=== PATIENT | male | born 1950 | race Hispanic/Latino ===

== ENCOUNTER → 2025-06-08 | Day surgery (SDC) | payer MEDICARE ==
[2025-06-02 11:29] LABS: BASOPHILS % 0.3 % (0.0-1.0); EOSINOPHILS % 0.8 % (0.0-6.0); LYMPHOCYTES % 19.2 % (18.0-39.1); MONOCYTES % 7.2 % (4.4-11.3); NEUTROPHILS % 72.4 % (38.7-80.0); RED CELL DISTRIBUTION WIDTH 16.0 % (11.7-14.4)
[~2025-06-08] MED LIST: ATORVASTATIN CA20 MG PO; CHLORTHALIDONE25 MG; FEROSUL325 MG PO; LIDOCAINE HCL 2% LOCAL INJ 5 ML SDV VIAL INJ ONE; LOSARTAN POTAS100 MG PO; METFORMIN HCL500 MG PO; NOVOLIN 70100 UNIT/3; PHENYLEPHRINE HCL 1% 10 MG/ML VIAL ONE; PROPOFOL IV EMULSION 10 MG/ML 20 ML VIAL ONE; VITAMIN C500 MG PO
[2025-06-08] MEDS: LACTATED RINGER'S 1,000 ML ONE (07:19)
[2025-06-08 10:07] VITALS: TEMP 97.2
[2025-06-08 10:35] VITALS: BP 127/70; PULSE 69; RESP 16; O2SAT 100
== END | disposition home or self-care (01) ==
LOC: OR 06:48
PROVIDERS: ATTEND Internal Medicine Gastroenterology
DX: Z12.11 Encounter for screening for malignant neoplasm of colon (principal); D12.2 Benign neoplasm of ascending colon; K31.7 Polyp of stomach and duodenum; K29.50 Unspecified chronic gastritis without bleeding; K31.A15 Gastric intestinal metaplasia without dysplasia, involving multiple sites; K22.70 Barrett's esophagus without dysplasia; K22.89 Other specified disease of esophagus; K44.9 Diaphragmatic hernia without obstruction or gangrene; K59.00 Constipation, unspecified; K64.8 Other hemorrhoids; D50.9 Iron deficiency anemia, unspecified; I10 Essential (primary) hypertension; E11.9 Type 2 diabetes mellitus without complications; Z01.810 Encounter for preprocedural cardiovascular examination; Z01.812 Encounter for preprocedural laboratory examination; Z79.02 Long term (current) use of antithrombotics/antiplatelets; Z79.84 Long term (current) use of oral hypoglycemic drugs; Z79.4 Long term (current) use of insulin; Z79.899 Other long term (current) drug therapy
CPT/HCPCS: 36415 ×2; 43239; 45384; 82948; 85025; 88305; 88313; 88342; 93005; J2003; J2371; J2704; J7121; 45378; 88312